=== PATIENT | female | born 1975 | race Caucasian/White ===

== ENCOUNTER 2022-04-28 09:13 | Emergency (ER) | payer MEDICAID ==
[~2022-04-28] VITALS: Ht 175.3 cm; Wt 75.0 kg
[2022-04-28 09:17] VITALS: BP 120/72
[2022-04-28] MEDS ORDERED: TOPUD MT (11:25)
== END 2022-04-28 11:36 | disposition home or self-care (01) ==
LOC: ER 09:29
DX: S20.212A Contusion of left front wall of thorax, initial encounter (principal); F31.9 Bipolar disorder, unspecified; I10 Essential (primary) hypertension; Z88.2 Allergy status to sulfonamides; Z88.1 Allergy status to other antibiotic agents; V43.52XA Car driver injured in collision with other type car in traffic accident, initial encounter; Y93.89 Activity, other specified; Y92.488 Other paved roadways as the place of occurrence of the external cause
CPT/HCPCS: 71045; 73030; 99284